=== PATIENT | female | born 1980 | race Asian ===

== ENCOUNTER 2022-12-13 09:19 | Emergency (ER) | payer BC ==
[~2022-12-13] VITALS: Ht 157.5 cm; Wt 44.5 kg
[2022-12-13 09:22] VITALS: BP_SYST 137; PULSE 117; PULSE 76; RESP 18; TEMP 97.8; O2SAT 98
[2022-12-13 10:07] LABS: BILIRUBIN,URINE NEGATIVE (NEGATIVE); BLOOD, URINE NEGATIVE (NEGATIVE); CLARITY/URINE CLEAR (CLEAR); COLOR,URINE YELLOW (YELLOW); GLUCOSE,URINE NEGATIVE (NEGATIVE); KETONES,URINE 1+ (NEGATIVE); LEUKOCYTE ESTERASE ,URINE NEGATIVE (NEGATIVE); NITRITE, URINE NEGATIVE (NEGATIVE); PROTEIN URINE NEGATIVE (NEGATIVE); UROBILINOGEN,URINE 0.2 (0.2-1.0)
[2022-12-13 10:13] LABS: BASOPHILS % (AUTO) 0.4 % (0.0-2.0); EOSINOPHILS % (AUTO) 1.2 % (0.0-4.0); HEMOGLOBIN 13.1 g/dL (12.0-16.0); LYMPHOCYTES # (AUTO) 0.8 K/uL (1.0-5.5); LYMPHOCYTES % (AUTO) 21.6 % (20.5-51.5); MEAN CORPUSCULAR HEMOGLOBIN 29 pg (27-31); MEAN CORPUSCULAR HGB CONC 33 % (32-36); MEAN CORPUSCULAR VOLUME 90 fL (79.0-98.0); MONOCYTES # (AUTO) 0.2 K/uL (0.0-1.0); MONOCYTES % (AUTO) 5.4 % (1.7-9.3); NEUTROPHILS # (AUTO) 2.5 K/uL (1.8-7.7); NEUTROPHILS % (AUTO) 71.4 % (40.0-70.0); PLATELET COUNT (AUTO) 172 K/uL (130-430); RED BLOOD CELL COUNT(AUTO) 4.44 MIL/uL (4.2-6.2); RED CELL DISTRIBUTION WIDTH 12.7 % (9.0-15.0); WHITE BLOOD COUNT (AUTO) 3.5 K/uL (4.8-10.8)
[2022-12-13 10:17] LABS: CALCIUM 8.7 mg/dL (8.4-11.0); CREATININE 0.72 mg/dL (0.55-1.30)
[2022-12-13 10:46] LABS: TOTAL BILIRUBIN 0.7 mg/dL (0.0-1.0)
[2022-12-13] MEDS ORDERED: OMEP20CA15 PO (11:09)
[2022-12-13] MEDS ORDERED: BUSP5TAB3 PO (11:14)
[2022-12-13 11:18] VITALS: BP_SYST 106; PULSE 74; RESP 18; TEMP 97.3; O2SAT 97
== END 2022-12-13 11:19 | disposition home or self-care (01) ==
LOC: SED 09:19
DX: Z34.91 Encounter for supervision of normal pregnancy, unspecified, first trimester (principal); K29.70 Gastritis, unspecified, without bleeding; R10.13 Epigastric pain; Z79.899 Other long term (current) drug therapy
CPT/HCPCS: 36415; 76705; 80053; 81003; 81025; 82150; 83605; 83690; 84702; 85025; 99284